=== PATIENT | female | born 1990 | race Caucasian/White ===

== ENCOUNTER 2017-05-03 07:19 | Emergency (ER) | payer SELFPAY ==
--- NOTE | 2017-05-03 07:51 | ED Physician Documentation ---
Lower Extremity Injury - HISTORIAN Historian: patient - HPI Stated Complaint: Left Knee Injury Chief Complaint: Lower Extremity Injury Onset: hours (ABOUT 12 HOURS AGO) Where: home Context: fall (pATIENT WAS JOGGING LAST NIGHT ND FELL AND TWISTED KNEE. HEARD IT POP. WAS able to get up and walk on it. This AM is not able to put weight on it. No previou injury noted.) Modifying Factors:: pain on movement - ROS CONST: no problems - PAST HX Past History: none Immunizations: referred to PCP Allergies/Adverse Reactions: Allergies Allergy/AdvReac Type Severity Reaction Status Date / Time No Known Allergies Allergy Unverified 05/03/17 07:30 Home Medications: Ambulatory Orders Medication Instructions Recorded NK [NK] 05/03/17 - SOCIAL HX Smoking History: non-smoker Alcohol Use: none Drug Use: none - FAMILY HX Family History: none - VITAL SIGNS Vital Signs: Vital Signs Temp Pulse Resp BP Pulse Ox 98.8 F 115 H 18 147/65 98 05/03/17 07:20 05/03/17 07:20 05/03/17 07:20 05/03/17 07:20 05/03/17 07:20 - REVIEWED ASSESSMENTS Nursing Assessment Reviewed: Yes Vitals Reviewed: Yes ED Results Lab/Radiology - Radiology Radiology Impressions: Knee and ankle x-ray OK Patient Study Name: JOAN NICHOLS Date: May 03, 2017 7:55:04 AM CDT Modality Type: CR Gender: F Description: LOWER EXTREMITY : 88 Institution: [facility] Physician: FLOYD DUNAWAY - ER 3 views of the left knee History: LT KNEE INJURY WITH SWELLING, PT WAS JOGGING LAST NIGHT AND CLAIMS HER KNEE GAVE OUT ON HER Findings: No comparison study No evidence of acute fracture or dislocation left knee. Joint spaces are preserved. Small suprapatellar effusion Impression: No evidence of acute fracture or dislocation Small suprapatellar effusion 3 views of the left ankle History: LEFT ANKLE INJURY POST FALL No comparison studies Ankle mortise is preserved. No evidence of acute fracture or dislocation of the left ankle. 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 Minimal focal sclerosis distal left tibial shaft laterally No obvious soft tissue swelling Impression: No evidence of acute fracture or dislocation of the left ankle. Ankle mortise is preserved. Limited evaluation of the tarsal bones due to osseous overlap, dedicated foot radiographs may be done as relevant. Electronically signed on May 03, 2017 8:27:24 AM CDT by: Gretel Sneed - Orders Orders: ED Orders Category Date Time Status Air Splint 1T Care 05/03/17 08:29 Active Knee Immobilizer 1T Care 05/03/17 08:29 Active ANKLE 3 VIEWS OR MORE [RAD] Stat Exams 05/03/17 Ordered XR KNEE 3 VIEWS [KNEE 3 VIEWS] [RAD] Stat Exams 05/03/17 Ordered Lower Extremities Injury Phy - Physical Exam General Appearance: no acute distress Hips: bilateral hip: non-tender, normal inspection, normal range of motion, no evidence of injury Legs: bilateral: non-tender, normal inspection, normal range of motion, no evidence of injury Knees: right: non-tender, normal inspection, normal range of motion, no evidence of injury, left: joint effusion, pain, soft tissue tenderness ( generalized), swelling, N/A: bone tenderness (none), deformity (none), ecchymosis (none) Ankle: right: non-tender, normal inspection, normal range of motion, no evidence of injury, left: pain (along distal fib), soft tissue tenderness, N/A: deformity (none), ecchymosis (none), swelling (none) Foot: bilateral foot: non-tender, normal inspection, normal range of motion, no evidence of injury Gait: limited by pain Neuro/Vascular/Tendon: no vascular compromise Neck/Back: nml inspection Resp/CVS: chest non-tender, breath sounds nml, heart sounds nml, no resp. distress, lungs clear, reg. rate & rhythm Abdomen: non-tender, pelvis stable Discharge Clincal Impression: Strain of left knee Qualifiers: Encounter type: initial encounter Qualified Code(s): S86.912A - Strain of unspecified muscle(s) and tendon(s) at lower leg level, left leg, initial encounter Left ankle sprain Qualifiers: Encounter type: initial encounter Involved ligament of ankle: tibiofibular ligament Qualified Code(s): S93.432A - Sprain of tibiofibular ligament of left ankle, initial encounter Referrals: Ramila Pompa, PRN [Primary Care Provider] - 2 Days Additional Instructions: Wear knee and ankle splints for the next several days. Do exercises as instructed. Take acetaminophin as needed for pain. Keep extremity elevated with ice for the next 48 hours. Home Medications: Ambulatory Orders NK [NK] 05/03/17 Condition: Stable Disposition: 01 HOME, SELF-CARE Decision to Admit: NO Date of Decison to Admit: 05/03/17 Decision Time: 08:26
[2017-05-03 08:52] VITALS: BP 136/68
--- NOTE | 2017-05-03 17:40 | Diagnostic Imaging Report ---
FLOYD DUNAWAY [facility] [id number] [facility] [address] [address] Report Submission Date: May 03, 2017 8:27:24 AM CDT Patient Study Name: JOAN NICHOLS Date: May 03, 2017 8:02:36 AM CDT Modality Type: CR Gender: F Description: LOWER EXTREMITY : 88 Institution: [facility] Physician: FLOYD DUNAWAY 3 views of the left ankle History: LEFT ANKLE INJURY POST FALL No comparison studies Ankle mortise is preserved. No evidence of acute fracture or dislocation of the left ankle. 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 Minimal focal sclerosis distal left tibial shaft laterally No obvious soft tissue swelling Impression: No evidence of acute fracture or dislocation of the left ankle. Ankle mortise is preserved. Limited evaluation of the tarsal bones due to osseous overlap, dedicated foot radiographs may be done as relevant. Electronically signed on May 03, 2017 8:27:24 AM CDT by: Gretel BOYCE
--- NOTE | 2017-05-03 17:41 | Diagnostic Imaging Report ---
FLOYD DUNAWAY [facility] [address] [facility] [address] [address] Report Submission Date: May 03, 2017 8:22:19 AM CDT Patient Study Name: JOAN NICHOLS Date: May 03, 2017 7:55:04 AM CDT Modality Type: CR Gender: F Description: LOWER EXTREMITY : 88 Institution: [facility] Physician: FLOYD DUNAWAY 3 views of the left knee History: LT KNEE INJURY WITH SWELLING, PT WAS JOGGING LAST NIGHT AND CLAIMS HER KNEE GAVE OUT ON HER Findings: No comparison study No evidence of acute fracture or dislocation left knee. Joint spaces are preserved. Small suprapatellar effusion Impression: No evidence of acute fracture or dislocation Small suprapatellar effusion Electronically signed on May 03, 2017 8:22:19 AM CDT by: Gretel BOYCE
== END 2017-05-03 08:50 | disposition home or self-care (01) ==
LOC: ED 07:19
DX: S86.912A Strain of unspecified muscle(s) and tendon(s) at lower leg level, left leg, initial encounter (principal); S93.432A Sprain of tibiofibular ligament of left ankle, initial encounter; X58.XXXA Exposure to other specified factors, initial encounter; Y93.9 Activity, unspecified; Y99.9 Unspecified external cause status
CPT/HCPCS: 73562; 73610; L1830; L4350; 99283